=== PATIENT | female | born 1970 | race Caucasian/White ===

== ENCOUNTER 2019-07-01 08:46 | Day surgery (SDC) | payer MEDICAID ==
[~2019-07-01] VITALS: Ht 152.4 cm; Wt 55.8 kg
[2019-07-01 09:16] LABS: HCG,QUAL RESULT NEGATIVE (NEGATIVE)
[2019-07-01] MEDS ORDERED: LR 1,000 ML IV SCH (11:22)
[2019-07-01] MEDS ORDERED: ONDANSETRON HCL 4 MG/2 ML VIAL IVP PRN (11:30)
[2019-07-01] MEDS ORDERED: METOCLOPRAMIDE HCL 10 MG/2 ML VIAL IVP PRN (11:30)
[2019-07-01] MEDS ORDERED: KETOROLAC TROMETHAMINE 30 MG VIAL IVP PRN (11:30)
[2019-07-01] MEDS ORDERED: ePHEDrine sulfate 50 MG/ML VIAL IVP PRN (11:30)
[2019-07-01] MEDS ORDERED: HYDROmorphone 1 MG INJ. 1 MG/ML AMPUL IVP PRN (11:30)
[2019-07-01] MEDS ORDERED: SEVOFLURANE 15 MIN GAS INH ONE (12:38)
[2019-07-01] MEDS ORDERED: LIDOCAINE/EPI 1% 1:100000 20 ML VIAL INJ ONE (12:38)
[2019-07-01] MEDS ORDERED: MUPIROCIN 2% TOPICAL OINTMENT 22 GM ONE (12:38)
[2019-07-01] MEDS ORDERED: GLYCOPYRROLATE 0.2 MG/ML VIAL ONE (12:38)
[2019-07-01] MEDS ORDERED: NS IRRIG SOLN 1000 ML IR ONE (12:38)
[2019-07-01] MEDS ORDERED: PROPOFOL 200MG/ 20ML VIAL (DIPRIVAN) IV ONE (12:38)
[2019-07-01] MEDS ORDERED: EPINEPHrine 1 MG/ML AMP ONE (12:38)
[2019-07-01] MEDS ORDERED: LR 1,000 ML IV.SOLN IV ONE (12:38)
[2019-07-01] MEDS ORDERED: ePHEDrine sulfate 50 MG/ML VIAL ONE (12:38)
[2019-07-01] MEDS ORDERED: NEOSTIGMINE METHYLSULFATE 1 MG/ML, 10 ML VIAL ONE (12:38)
[2019-07-01] MEDS ORDERED: fentaNYL CITRATE/PF 100 MCG/2 ML AMP ONE (12:38)
[2019-07-01] MEDS ORDERED: WATER FOR IRRIGATION,STERILE 1,000 ML IRRIG.SOLN IR ONE (12:38)
[2019-07-01] MEDS ORDERED: MIDAZOLAM HCL 5 MG/ML VIAL (VERSED) IV ONE (12:38)
[2019-07-01] MEDS ORDERED: OXYMETAZOLINE HCL 0.05% NASAL SPRAY NS ONE (12:38)
[2019-07-01] MEDS ORDERED: ROCURONIUM BROMIDE 10 MG/ML (ZEMURON) ONE (12:38)
[2019-07-01] MEDS ORDERED: DEXAMETHASONE SOD PHOSPHATE 4 MG/ML VIAL ONE (12:38)
[2019-07-01] MEDS: HYDROmorphone 1 MG INJ. 1 MG/ML AMPUL IVP PRN ×2 (13:07→13:20)
[2019-07-01] MEDS ORDERED: HYDROmorphone 1 MG INJ. 1 MG/ML AMPUL ONE (13:23)
[2019-07-01] MEDS ORDERED: KETOROLAC TROMETHAMINE 30 MG VIAL ONE (14:18)
[2019-07-01] MEDS ORDERED: ONDANSETRON HCL 4 MG/2 ML VIAL ONE (14:33)
[2019-07-01 14:34] VITALS: BP_SYST 113
== END 2019-07-01 17:50 | disposition home or self-care (01) ==
LOC: SDS 08:46 → SMU 08:48 → SDS 17:50
PROVIDERS: ATTEND Otolaryngology
DX: J32.8 Other chronic sinusitis (principal); J34.89 Other specified disorders of nose and nasal sinuses; D38.5 Neoplasm of uncertain behavior of other respiratory organs; J30.1 Allergic rhinitis due to pollen; J34.2 Deviated nasal septum; E78.00 Pure hypercholesterolemia, unspecified
CPT/HCPCS: 30140; 30520; 31255; 31256; 31296; 84703; 88305; 88311; C1726; J0171; J1100; J1170; J1885; J2250; J2405; J2704; J2710; J3010; J3490; J7120; 88304

== ENCOUNTER 2021-03-29 06:11 | Day surgery (SDC) | payer MEDICAID, SELFPAY ==
[~2021-03-29] VITALS: Ht 152.4 cm; Wt 55.3 kg
[2021-03-29 07:04] LABS: HCG,QUAL RESULT NEGATIVE (NEGATIVE)
[2021-03-29] MEDS ORDERED: ACETAMINOPHEN I.V. 1000 MG 100 ML IV ONE (07:10)
[2021-03-29] MEDS ORDERED: METOCLOPRAMIDE HCL 10 MG/2 ML VIAL IVP PRN (08:30)
[2021-03-29] MEDS ORDERED: MIDAZOLAM HCL 2 MG/2 ML VIAL (VERSED) IVP PRN (08:30)
[2021-03-29] MEDS ORDERED: LR 1,000 ML IV SCH (08:30)
[2021-03-29] MEDS ORDERED: MEPERIDINE HCL/PF 25 MG/ML DISP.SYRIN IVP PRN (08:30)
[2021-03-29] MEDS ORDERED: HYDROmorphone 1 MG/ML INJ. CARTRIDGE IVP PRN ×2 (08:30)
[2021-03-29] MEDS ORDERED: NS 1000 ML IV.SOLN IV ONE (10:24)
[2021-03-29] MEDS ORDERED: SUGAMMADEX SODIUM 200 MG/2 ML VIAL IV ONE (10:24)
[2021-03-29] MEDS ORDERED: MIDAZOLAM HCL 5 MG/ML VIAL (VERSED) IV ONE (10:24)
[2021-03-29] MEDS ORDERED: DEXAMETHASONE SOD PHOSPHATE 4 MG/ML VIAL ONE (10:24)
[2021-03-29] MEDS ORDERED: WATER FOR IRRIGATION,STERILE 1,000 ML IRRIG.SOLN IR ONE (10:24)
[2021-03-29] MEDS ORDERED: LR 1,000 ML IV.SOLN IV ONE (10:24)
[2021-03-29] MEDS ORDERED: NS IRRIG SOLN 1000 ML IR ONE (10:24)
[2021-03-29] MEDS ORDERED: PROPOFOL 200MG/ 20ML VIAL (DIPRIVAN) IV ONE (10:24)
[2021-03-29] MEDS ORDERED: DESFLURANE 15 MIN GAS INH ONE (10:24)
[2021-03-29] MEDS ORDERED: OXYMETAZOLINE HCL 0.05% NASAL SPRAY NS ONE (10:24)
[2021-03-29] MEDS ORDERED: fentaNYL CITRATE 250 MCG/5 ML AMP ONE (10:24)
[2021-03-29] MEDS ORDERED: ONDANSETRON HCL 4 MG/2 ML VIAL ONE (10:24)
[2021-03-29] MEDS ORDERED: ROCURONIUM BROMIDE 10 MG/ML (ZEMURON) ONE (10:24)
[2021-03-29] MEDS ORDERED: LIDOCAINE/EPI 1% 1:100000 20 ML VIAL INJ ONE (10:24)
[2021-03-29] MEDS ORDERED: HYDROmorphone 1 MG/ML INJ. CARTRIDGE ONE (11:11)
[2021-03-29] MEDS ORDERED: METOCLOPRAMIDE HCL 10 MG/2 ML VIAL ONE (12:40)
[2021-03-29 12:49] VITALS: BP_SYST 106
== END 2021-03-29 14:00 | disposition home or self-care (01) ==
LOC: SDS 06:11 → SMU 06:12 → SDS 14:00
PROVIDERS: ATTEND Otolaryngology
DX: J34.89 Other specified disorders of nose and nasal sinuses (principal); D38.5 Neoplasm of uncertain behavior of other respiratory organs; J34.2 Deviated nasal septum; J30.1 Allergic rhinitis due to pollen; J32.9 Chronic sinusitis, unspecified; K21.9 Gastro-esophageal reflux disease without esophagitis; E78.00 Pure hypercholesterolemia, unspecified; Z79.899 Other long term (current) drug therapy; Z20.822 Contact with and (suspected) exposure to COVID-19
CPT/HCPCS: 30140; 30520; 31298; 84703; 88304; 88305; 88311; C1726; J0131; J1100; J1170; J2250; J2405; J2704; J2765; J3010; J3465; J3490; J7030; J7120; U0003